=== PATIENT | female | born 1970 | race Caucasian/White ===

== ENCOUNTER 2017-08-08 19:36 | Emergency (ER) | payer MEDICAID ==
[2017-08-08 19:58] LABS: URINE BLOOD (Dip) POC 2+ (NEGATIVE); URINE GLUCOSE (Dip) POC Negative (NEGATIVE); URINE KETONES (Dip) POC Negative (NEGATIVE); URINE LEUKOCYTE EST (Dip) POC Trace (NEGATIVE); URINE NITRITE (Dip) POC Negative (NEGATIVE); URINE TOTAL PROTEIN POC Negative (NEGATIVE)
[2017-08-08] MEDS: KETOROLAC 15 MG INJ IV (20:21)
[2017-08-08] MEDS: LORAZEPAM 0.5 MG TAB PO (20:21)
== END 2017-08-08 20:30 | disposition home or self-care (01) ==
LOC: E/R 19:36
DX: R07.9 Chest pain, unspecified (principal); F41.1 Generalized anxiety disorder; F43.20 Adjustment disorder, unspecified; M54.5 Low back pain
CPT/HCPCS: 81003; 81025; 93005; 96374; 99284-25